=== PATIENT | female | born 1995 | race Two or more races ===

== ENCOUNTER 2024-04-24 05:31 | Inpatient (IN) ==
[2024-04-24] MEDS: Buffered Lidocaine 1% SYRIN 1 ml INTRADERM ONE (06:04)
[2024-04-24] MEDS: Lactated Ringers 1000 ml BAG 1,000 ML IV ONE (06:25)
[2024-04-24] MEDS ORDERED: Phenylephrine 40 mcg/mL 10mL (400mcg) SYRINGE ONE ×2 (06:41→08:29)
[2024-04-24] MEDS ORDERED: Ondansetron 4 mg VIAL 2 MG/ML 2 ml VIAL ONE (06:42)
[2024-04-24 07:12] LABS: ABS Basophils 0.1 10^3/uL (0.0-0.1); ABS Eosinophils 0.2 10^3/uL (0.0-0.5); ABS Lymphocytes 1.5 10^3/uL (1.0-4.8); ABS Monocytes 1.4 10^3/uL (0.0-0.9); ABS Neutrophils 6.8 10^3/uL (1.5-7.6); Eosinophil % 1.8 %; Hematocrit 30.9 % (35-45); Mean Corpuscular Hgb Conc 32.5 g/dL (31-36); Mean Corpuscular Volume 70.7 fL (80-97); Mean Platelet Volume 9.2 fL (7.5-11.2); Microcytosis 2+; Platelet Count 315 10^3/uL (150-450); Red Blood Count 4.36 10^6/uL (3.63-4.92); Red Cell Distribution Width 16.1 % (12-17)
[2024-04-24] MEDS ORDERED: Naloxone 0.4 mg VIAL 0.4 mg/ml 1 ml VIAL IV PRN (07:30)
[2024-04-24] MEDS: Sodium Citrate/Citric Acid LIQ 15 ML UDC PO ONE ×2 (07:57→12:14)
[2024-04-24] MEDS: ceFOXitin 2 GM IVPREMIX 2 GM/50 ML BAG IVPB ONE (07:57)
[2024-04-24] MEDS ORDERED: Morphine PF AMP (0.5MG/ML) 5 MG/10 ML AMP ONE (07:59)
[2024-04-24] MEDS ORDERED: fentaNYL 100 mcg/2 ml 50 MCG/ML VIAL ONE (07:59)
[2024-04-24] MEDS ORDERED: Oxytocin 10 UNITS/ML 1 ML VIAL ONE ×2 (08:32→09:21)
[2024-04-24] MEDS ORDERED: Naloxone 0.4 mg VIAL 0.4 mg/ml 1 ml VIAL IV PUSH PRN (09:02)
[2024-04-24] MEDS ORDERED: Ondansetron 4 mg VIAL 2 MG/ML 2 ml VIAL IV PRN (09:02)
[2024-04-24] MEDS ORDERED: Metoclopramide 5 MG/ML VIAL (10 mg) IV PRN (09:02)
[2024-04-24] MEDS ORDERED: Glycerin ADULT 2.4 gm SUPP PR PRN (09:42)
[2024-04-24] MEDS ORDERED: Witch Hazel PAD JAR TOPICAL PRN (09:42)
[2024-04-24 09:55] LABS: Urine Benzodiazepine Screen None Detected (None Detect); Urine Cannabinoids Screen None Detected (None Detect); Urine Opiates Screen None Detected (None Detect)
[2024-04-24] MEDS ORDERED: Lactated Ringers 1000 ml BAG 1,000 ML IV SCH (10:00)
[2024-04-24 10:03] LABS: Urine Appearance Clear; Urine Bilirubin Negative (Negative); Urine Blood 2+ (Negative); Urine Color Light-Yellow; Urine Glucose Negative (Negative); Urine Ketones 3+ (Negative); Urine Nitrite Negative (Negative); Urine Protein Trace (Negative); Urine Specific Gravity 1.016 (1.002-1.030); Urine Urobilinogen Negative (Negative)
[2024-04-24] MEDS: Acetaminophen IV 1 GM/100ML 1,000 MG/100 ML BAG IV PRN (10:05)
[2024-04-24] MEDS: Oxytocin in LR 20,000 MILLI.UNIT/1,000 ML BAG IV SCH (10:38)
[2024-04-24 10:57] LABS: Urine Bacteria Absent /HPF (Absent); Urine Red Blood Cell 3+(>10/hpf) /HPF (0-Trace); Urine Squamous Epithelial Cell Present /HPF (Absent); Urine Transitional Epithelial Present /HPF (Absent); Urine White Blood Cell Trace(0-5/hpf) /HPF (0-Trace)
[2024-04-24] MEDS: Tranexamic Acid 1 GM/100ML BAG 0 MG/0 ML BAG IV ONE (16:12)
[2024-04-24] MEDS: Lactated Ringers 1000 ml BAG 1,000 ML IV SCH (16:13)
[2024-04-25 06:59] LABS: ABS Basophils 0.1 10^3/uL (0.0-0.1); ABS Eosinophils 0.1 10^3/uL (0.0-0.5); ABS Lymphocytes 1.5 10^3/uL (1.0-4.8); ABS Monocytes 2.2 10^3/uL (0.0-0.9); ABS Neutrophils 12.7 10^3/uL (1.5-7.6); Eosinophil % 0.9 %; Hematocrit 25.9 % (35-45); Hemoglobin 8.5 g/dL (11.5-14.3); Lymphocyte % 9.3 %; Mean Corpuscular Hemoglobin 23.1 pg (27-33); Mean Corpuscular Hgb Conc 32.7 g/dL (31-36); Mean Corpuscular Volume 70.6 fL (80-97); Mean Platelet Volume 8.4 fL (7.5-11.2); Platelet Count 258 10^3/uL (150-450); Red Blood Count 3.66 10^6/uL (3.63-4.92); Red Cell Distribution Width 16.2 % (12-17); White Blood Count 16.7 10^3/uL (3.8-11.8)
[2024-04-26 08:32] VITALS: BP 128/71
== END 2024-04-26 13:48 | disposition home or self-care (01) | DRG 788 ==
LOC: MCHOB 05:31
PROVIDERS: ADMIT Obstetrics & Gynecology; ATTEND Obstetrics & Gynecology